=== PATIENT | male | born 2000 | race Caucasian/White ===

== ENCOUNTER 2025-07-25 09:40 | Emergency (ER) | payer MEDICAID, OTHER ==
[~2025-07-25] VITALS: Ht 170.2 cm; Wt 82.0 kg
[2025-07-25 09:48] VITALS: O2SAT 99
[2025-07-25] MEDS: PANTOPRAZOLE 40MG DR TABLET PO ONE (10:22)
[2025-07-25] MEDS: ACETAMINOPHEN 325MG TABLET PO ONE (10:22)
[2025-07-25] MEDS: MAGNESIUM/ALUMINUM HYDROXIDE/SIMETHICONE 30ML UDC PO ONE (10:22)
[2025-07-25] MEDS ORDERED: PANT40SU MT (11:12)
[2025-07-25] MEDS ORDERED: MAG-55 MT (11:12)
[2025-07-25] MEDS ORDERED: TOPUD MT (11:12)
[2025-07-25 11:22] VITALS: BP 120/71; PULSE 63; RESP 16; TEMP 36.9; O2SAT 99
== END 2025-07-25 11:24 | disposition home or self-care (01) ==
LOC: ER 09:40
DX: K21.9 Gastro-esophageal reflux disease without esophagitis (principal); F17.210 Nicotine dependence, cigarettes, uncomplicated
CPT/HCPCS: 93005; 99284